=== PATIENT | female | born 1995 | race African-American/Black ===

== ENCOUNTER 2020-04-02 17:02 | Emergency (ER) | payer OTHER ==
[~2020-04-02] VITALS: Ht 167.6 cm; Wt 138.8 kg
[2020-04-02] MEDS ORDERED: AUGMENTIN 500-1 EACH PO (17:36)
== END 2020-04-02 17:46 | disposition home or self-care (01) ==
LOC: FSED 17:41
DX: J02.0 Streptococcal pharyngitis (principal)
CPT/HCPCS: 83518; 99283

== ENCOUNTER 2020-08-04 23:00 | Emergency (ER) | payer OTHER ==
[~2020-08-04] VITALS: Ht 167.6 cm; Wt 144.7 kg
[~2020-08-04 23:00] MED LIST: AUGMENTIN 500-1 EACH PO
[2020-08-04] MEDS ORDERED: DEXAMETHASONE SOD PHOS 10 MG/1 ML VIAL IM ONE (23:30)
[2020-08-04] MEDS ORDERED: DEXAMETHASONE SOD PHOS INJ 4 MG/ML VIAL ONE (23:45)
[2020-08-05 00:11] VITALS: BP 148/97
== END 2020-08-05 00:11 | disposition home or self-care (01) ==
LOC: FSED 08-05 00:01
DX: J02.0 Streptococcal pharyngitis (principal); R50.9 Fever, unspecified
CPT/HCPCS: 99282; J1100